=== PATIENT | male | born 1995 | race Caucasian/White ===

== ENCOUNTER 2024-12-11 20:34 | Emergency (ER) | payer OTHER, SELFPAY ==
[2024-12-11] VITALS (9 sets, daily range): BP systolic 117–137; BP diastolic 73–86; PULSE 56–83; RESP 14–21; TEMP 36.2–36.6; O2SAT 97–100; BMI 23.3
--- NOTE | 2024-12-11 20:37 | RAD_ITS ---
PROCEDURE: SHOULDER MIN 2 VIEWS 12/11/2024 REASON FOR EXAM: PAIN/INJURY TECHNIQUE: 3 view(s) of the left shoulder COMPARISON: None FINDINGS: There is anterior dislocation of the humerus relative to the glenoid. Acromioclavicular joint is unremarkable. Visualized thorax is unremarkable. RAD/Shoulder min 2 Views IMPRESSION: Anterior shoulder dislocation. [place] Alert: Anterior shoulder dislocation The critical information above was relayed directly by me by telephone to Nurse Brandt Calloway on 12/11/2024 at 8:59 pm with readback verification. Reading Location: [id number]
--- NOTE | 2024-12-11 21:01 | ED.RN ---
PT WITH SEVERE PAIN, COLD AND CLAMMY.
[2024-12-11] MEDS: fentaNYL 100 MCG/2 ML Ampul 50 MCG IV (21:39)
--- NOTE | 2024-12-11 21:42 | EX.ED.UPPERE ---
HPI History of Present Illness Chief Complaint: Dislocation Narrative Narrative: 29-year-old male who denies significant past medical history, [id number], presents with injury to his left shoulder that he sustained today, few hours ago, playing softball. He states he was trying to make a play on the ball, and dove for it. While his elbow hit the ground, he has pain in his left shoulder and is unable to move his arm without significant pain. He denies hitting his head or loss of consciousness, no other injury. No elbow pain. PFSH PFSH Medical History no medical history Home Medications ?Medication ?Instructions ?Recorded ?Last Taken ?Type hydrocodone-acetaminophen 5-325mg 1 tab PO Q6H PRN PRN Pain 3 days 12/11/24 Unknown Rx 5mg-325mg #10 TABLETS Allergy/AdvReac Type Severity Reaction Status Date / Time No Known Allergies Allergy Verified 12/11/24 20:35 Surgical History no surgical history Social History Smoking Status: Never smoker ROS ROS ED ROS Narrative Review of systems positive for left shoulder pain. No hitting of head, no loss of consciousness. No elbow pain. Denies other injury. EXAM Physical Exam Narrative Exam Narrative: GCS 15. ABCs are intact. Cardiovascular examination regular rate and rhythm. Lungs are clear to auscultation bilaterally. Abdomen is soft and nontender without guarding or rebound. Musculoskeletal examination shows deficit in left shoulder. He does appear neurovascularly intact distally with a palpable radial pulse. He is uninjured at the elbow and below. He is able to give a thumbs up and oppose his thumb. Good capillary refill of fingers. Const Vital Signs: 12/11/24 20:35 Temperature 97.2 F L Temperature Source Temporal Pulse Rate 65 Respiratory Rate 16 Blood Pressure 117/73 Blood Pressure Mean 87 Pulse Ox 100 Oxygen Delivery Method Room Air MDM MDM MDM Narrative Medical decision making narrative: Concern is for fracture versus dislocation versus fracture dislocation of left shoulder. Protocol x-rays were obtained and interpreted by myself independently as an anterior shoulder dislocation. I reviewed the radiology report which confirms my independent interpretation. Patient administered fentanyl 50 mcg intravenously for analgesia. He will be consented for procedural sedation for closed reduction of the left shoulder. He last ate more than 4 hours ago. See procedure note for details. He was consented for closed reduction and procedural sedation. He was placed in a sling initially status postreduction. Postreduction x-rays were obtained and interpreted by myself independently. There were successful postreduction. I reviewed the radiology report which confirms my independent interpretation. At this point in time, upon repeat examination he is feeling improved. He has no elbow tenderness. I do not feel he needs x-ray of the elbow. He is able to move his fingers. He will be given 1 Frostproof tablet prior to discharge and prescription written for the next 3 days. He was referred to orthopedics on-call. At this point in time, I do feel he can be discharged safely home with follow-up. Return instructions to the emergency department were reviewed. Disposition is discharged home, in stable condition. History & Record Review Discussion w/independent historian: Patient Lab Data Attestation: I reviewed the patient's lab results. Radiography Diagnostic Testing: Clinical Impression(s) from Imaging Studies Shoulder X-Ray 12/11/24 20:37 IMPRESSION: Anterior shoulder dislocation. [place] Alert: Anterior shoulder dislocation The critical information above was relayed directly by me by telephone to Nurse Brandt Calloway on 12/11/2024 at 8:59 pm with readback verification. Reading Location: [id number] Procedures Procedural Sedation Closed reduction left shoulder: Consent Signed: Yes Any Problems With Anesthesia: No You/Your family experience fever (hyperthermia) w/anesthesia: Unknown Sedation medication: Propofol (160 mg) Dose: 160 Route: IV [place]iampati Score: Class II ASA Classification: I Comment:: Left shoulder reduced using traction and Milch maneuver with external rotation with good success. Patient tolerated procedure well. Discharge Plan Triage Chief Complaint: Dislocation ED Provider: Puneet Puri Dx/Rx/DC Orders Clinical Impression: Anterior dislocation of left shoulder, Fall Instructions: ED Dislocation: Shoulder (Reduced), ED Sling and Swathe Prescriptions: New hydrocodone-acetaminophen 5-325 mg tablet 1 tab PO Q6H PRN PRN (Reason: Pain) 3 Days Qty: 10 0RF Primary Care Provider: Steven Estrada Referrals: Steven Estrada DO [Primary Care Provider] - Vlad Tello DO [Med Staff - Active Staff] - 1 Week Activity Restrictions/Additional Instructions: Medication as directed for analgesia. Keep your left arm in the sling and swath. Follow-up with orthopedics within the next week. If you remove the sling, your shoulder may dislocate again. Print Language: Norwegian Disposition Disposition: Home, Self Care
[2024-12-11] MEDS: Propofol 200 MG/20 ML Vial IV BOLUS (22:39)
--- NOTE | 2024-12-11 22:45 | RAD_ITS ---
PROCEDURE: SHOULDER MIN 2 VIEWS 12/11/2024 REASON FOR EXAM: POST REDUCTION TECHNIQUE: 3 view(s) of the left shoulder COMPARISON: Earlier same-day left shoulder radiographs FINDINGS: There is interval reduction of the left shoulder dislocation. No definite evidence of a osseous Bank[place] fracture or Hill-Sachs deformity. Acromioclavicular joint space is maintained. Visualized thorax is unremarkable. RAD/Shoulder min 2 Views IMPRESSION: Satisfactory reduction of the left shoulder dislocation. Reading Location: [id number]
[2024-12-11] MEDS: HYDROcodone Bitartrate/Apap 5/325 Tablet PO (23:28)
[2024-12-12] VITALS: BP 128/80; PULSE 79; RESP 18; TEMP 36.6; O2SAT 100
== END 2024-12-12 00:27 | disposition home or self-care (01) ==
PROVIDERS: Emergency Provider Emergency Medicine; PCP Family Medicine; Visit Provider Emergency Medicine
DX: S43.015A Anterior dislocation of left humerus, initial encounter (principal); W01.198A Fall on same level from slipping, tripping and stumbling with subsequent striking against other object, initial encounter; Y93.64 Activity, baseball
CPT/HCPCS: 23650; 73030; 99284; A4216